=== PATIENT | male | born 1965 | race Caucasian/White ===

== ENCOUNTER → 2018-09-15 | Outpatient (CLI) | payer OTHER ==
--- NOTE | 2018-09-15 13:59 | EST ---
EXERCISE STRESS AGE: 53 SEX: M HT: 72" WT: 240 PROTOCOL: [facility] Stress Test STAGE: 3 DURATION OF EXERCISE: 7:30 HEART RATE REST: 95 BLOOD PRESSURE REST: 109/79 MAXIMUM HEART RATE ACHIEVED: 140 MAXIMUM BLOOD PRESSURE: 144/74 85% MPHR: 140 100% MPHR: 165 METS: 9.1 INDICATIONS: Chest pain. CLINICAL INFORMATION: Baseline EKG revealed a sinus mechanism with minor nonspecific right ventricular conduction delay and precordial ST-T abnormality in leads V1 to V3. Patient walked for 7.5 minutes achieved a maximal heart rate of 140 beats per minute which is 85% of predicted maximum, developed fatigue, shortness of breath but did not have any angina or arrhythmia. EKG did not reveal any new ST-segment changes to indicate ischemia. There was no arrhythmia. This is a negative stress test with somewhat limited exercise capacity. There is no evidence of ischemia or arrhythmia on this stress test and patient did not have angina. JORDAN / ANDRÉS: [id number] /
== END | disposition home or self-care (01) ==
LOC: RADNMMAIN 08:12
PROVIDERS: ATTEND Physician Assistant
DX: I20.8 Other forms of angina pectoris (principal)
CPT/HCPCS: 93017